=== PATIENT | female | born 1980 | race Caucasian/White ===

== ENCOUNTER 2021-04-09 18:01 | Inpatient (IN) | payer BC, SELFPAY ==
[~2021-04-09] VITALS: Ht 167.6 cm; Wt 83.9 kg
[~2021-04-09 18:01] MED LIST: LEVO25TA2 PO; PREN1TAB49 PO
[2021-04-09] MEDS ORDERED: LR 1,000 ML IV SCH (18:45)
[2021-04-09] MEDS ORDERED: OXYTOCIN/0.9 % SODIUM CHLORIDE 1,000 ML IV SCH (18:45)
[2021-04-09 19:35] LABS: BILIRUBIN,URINE NEGATIVE (NEGATIVE); BLOOD, URINE NEGATIVE (NEGATIVE); CLARITY/URINE CLEAR (CLEAR); COLOR,URINE YELLOW (YELLOW); GLUCOSE,URINE NEGATIVE (NEGATIVE); KETONES,URINE NEGATIVE (NEGATIVE); LEUKOCYTE ESTERASE ,URINE NEGATIVE (NEGATIVE); NITRITE, URINE NEGATIVE (NEGATIVE); PROTEIN URINE NEGATIVE (NEGATIVE); UROBILINOGEN,URINE 0.2 (0.2-1.0)
[2021-04-09 19:35] LABS: EOSINOPHILS # (AUTO) 0.1 K/uL (0.0-0.4); RED BLOOD CELL COUNT(AUTO) 3.82 MIL/uL (4.2-6.2)
[2021-04-09 19:39] LABS: BASOPHILS % (AUTO) 0.3 % (0.0-2.0); EOSINOPHILS % (AUTO) 0.7 % (0.0-4.0); HEMATOCRIT 35.5 % (36-48); HEMOGLOBIN 11.7 g/dL (12.0-16.0); LYMPHOCYTES # (AUTO) 2.3 K/uL (1.0-5.5); LYMPHOCYTES % (AUTO) 23.4 % (20.5-51.5); MEAN CORPUSCULAR HEMOGLOBIN 31 pg (27-31); MEAN CORPUSCULAR HGB CONC 33 % (32-36); MEAN CORPUSCULAR VOLUME 93 fL (79.0-98.0); MONOCYTES # (AUTO) 0.6 K/uL (0.0-1.0); MONOCYTES % (AUTO) 6.3 % (1.7-9.3); NEUTROPHILS # (AUTO) 6.8 K/uL (1.8-7.7); NEUTROPHILS % (AUTO) 69.3 % (40.0-70.0); PLATELET COUNT (AUTO) 239 K/uL (130-430); WHITE BLOOD COUNT (AUTO) 9.8 K/uL (4.8-10.8)
[2021-04-09] MEDS ORDERED: TEMAZEPAM 15 MG CAPSULE PO PRN (20:30)
[2021-04-09] MEDS ORDERED: ROPIVACAINE HCL/PF 0.2% 200 ML ONE (22:58)
[2021-04-09] MEDS ORDERED: fentaNYL CITRATE/PF 100 MCG/2 ML AMP ONE (22:58)
[2021-04-10] MEDS ORDERED: FENT2mCg/mL-ROPIVA0.2%/NS EPID 200 ML EP SCH
[2021-04-10] MEDS ORDERED: ONDANSETRON HCL 4 MG/2 ML VIAL IVP PRN
[2021-04-10] MEDS ORDERED: OXYTOCIN/0.9 % SODIUM CHLORIDE 1,000 ML IV ONE (08:30)
[2021-04-10] MEDS ORDERED: RHO(D) IMMUNE GLOBULIN/MALTOSE 1500 UNITS/1.3 ML (WINHRO) IM PRN (08:30)
[2021-04-10] MEDS ORDERED: METHYLERGONOVINE MALEATE 0.2 MG TABLET PO PRN (08:30)
[2021-04-10] MEDS ORDERED: DERMOPLAST SPRAY TP PRN (08:30)
[2021-04-10] MEDS ORDERED: HYDROCORTISONE 0.5% CREAM 28.4 GM CREAM.GM. TP PRN (08:30)
[2021-04-10] MEDS ORDERED: WITCH HAZEL LEAF 1 MED.PAD MED.PAD TP PRN (08:30)
[2021-04-10] MEDS ORDERED: HYDROcodone/ACETAMIN 5-325 MG TAB (NORCO/ VICODIN) PO PRN (08:30)
[2021-04-10] MEDS ORDERED: LANOLIN 7 GM OINT. TP PRN (08:30)
[2021-04-10] MEDS ORDERED: OXYTOCIN/0.9 % SODIUM CHLORIDE 1,000 ML IV SCH (08:30)
[2021-04-10] MEDS ORDERED: NALOXONE HCL 0.4 MG/ML AMP (NARCAN) IVP PRN ×2 (08:30)
[2021-04-10] MEDS ORDERED: MEASLES,MUMPS&RUBELLA VACC/PF 12500 UNIT/0.5 ML VIAL SUBQ PRN (08:30)
[2021-04-10] MEDS ORDERED: OXYCODONE/ACETAMINOPHEN 5-325 TABLET PO PRN (08:30)
[2021-04-10] MEDS ORDERED: DIPH-TET-PERTUS Vaccine 0.5 ML VIAL (ADACEL) I.M. PRN (08:30)
[2021-04-10] MEDS: DOCUSATE SODIUM 100 MG CAPSULE PO SCH (09:10)
[2021-04-10] MEDS: OXYCODONE/ACETAMINOPHEN 5-325 TABLET PO PRN ×2 (09:10→14:57)
[2021-04-10] MEDS: IBUPROFEN 600 MG TABLET PO SCH ×3 (12:24→23:27)
[2021-04-10] MEDS ORDERED: TEMAZEPAM 15 MG CAPSULE PO PRN (21:00)
[2021-04-10] MEDS ORDERED: SENNOSIDES/DOCUSATE SODIUM 1 TAB TABLET(SENOKOT-S) PO SCH (21:00)
[2021-04-10] MEDS: ANUSOL 1 EA SUPP.RECT (PREPARATION H) RC PRN (23:27)
[2021-04-11] MEDS: IBUPROFEN 600 MG TABLET PO SCH ×2 (05:21→12:01)
[2021-04-11 06:38] LABS: BASOPHILS % (AUTO) 0.3 % (0.0-2.0); EOSINOPHILS # (AUTO) 0.2 K/uL (0.0-0.4); HEMATOCRIT 31.2 % (36-48); HEMOGLOBIN 10.4 g/dL (12.0-16.0); LYMPHOCYTES # (AUTO) 2.5 K/uL (1.0-5.5); LYMPHOCYTES % (AUTO) 23.5 % (20.5-51.5); MEAN CORPUSCULAR HEMOGLOBIN 31 pg (27-31); MEAN CORPUSCULAR HGB CONC 33 % (32-36); MEAN CORPUSCULAR VOLUME 94 fL (79.0-98.0); MONOCYTES # (AUTO) 0.7 K/uL (0.0-1.0); MONOCYTES % (AUTO) 6.4 % (1.7-9.3); NEUTROPHILS # (AUTO) 7.2 K/uL (1.8-7.7); NEUTROPHILS % (AUTO) 67.8 % (40.0-70.0); PLATELET COUNT (AUTO) 213 K/uL (130-430); RED BLOOD CELL COUNT(AUTO) 3.33 MIL/uL (4.2-6.2); RED CELL DISTRIBUTION WIDTH 14.1 % (9.0-15.0); WHITE BLOOD COUNT (AUTO) 10.6 K/uL (4.8-10.8)
[2021-04-11 11:28] VITALS: BP_SYST 108
[2021-04-11] MEDS: DOCUSATE SODIUM 100 MG CAPSULE PO SCH (12:01)
[2021-04-11] MEDS: ANUSOL 1 EA SUPP.RECT (PREPARATION H) RC PRN (12:02)
== END 2021-04-11 14:15 | disposition home or self-care (01) | DRG 807 ==
LOC: SPU 18:01 → OBSVTOIN 18:54
PROVIDERS: ADMIT Specialist; ATTEND Specialist
PROC: 10E0XZZ Delivery of Products of Conception, External Approach (ICD-10-PCS; principal; 2021-04-10)
PROC: 0KQM0ZZ Repair Perineum Muscle, Open Approach (ICD-10-PCS; 2021-04-10)
PROC: 3E0R3BZ Introduction of Anesthetic Agent into Spinal Canal, Percutaneous Approach (ICD-10-PCS; 2021-04-10)
PROC: 00HU33Z Insertion of Infusion Device into Spinal Canal, Percutaneous Approach (ICD-10-PCS; 2021-04-10)
DX: O41.03X0 Oligohydramnios, third trimester, not applicable or unspecified (principal); Z37.0 Single live birth; O70.1 Second degree perineal laceration during delivery; Z20.822 Contact with and (suspected) exposure to COVID-19; Z3A.38 38 weeks gestation of pregnancy
CPT/HCPCS: 36415; 81003; 85025; 86592; 86886; 86900; 86901; 94760; G0378; J2590; J3010